=== PATIENT | male | born 1980 | race Two or more races ===

== ENCOUNTER 2017-05-19 20:09 | Inpatient (IN) | payer MEDICAID ==
[~2017-05-19] VITALS: Ht 175.3 cm; Wt 104.3 kg
[2017-05-19 21:38] LABS: Basophils # (auto) 0.1 uL; Basophils % (auto) 0.5 % (0.0-2.0); Eosinophils # (auto) 0.1 uL; Eosinophils % (auto) 0.6 % (0.0-7.0); Hematocrit 51.2 % (41.0-53.0); Hemoglobin 17.1 g/dL (13.5-17.5); Lymphocytes # (auto) 1.9 uL; Lymphocytes % (auto) 9.7 % (10.0-50.0); Mean Corpuscular Hemoglobin 29.8 pg (28.0-32.0); Mean Corpuscular Hgb Conc. 33.5 g/dL (32.0-36.0); Mean Corpuscular Volume 89.1 fL (80.0-100.0); Monocytes # (auto) 0.9 uL; Monocytes % (auto) 4.4 % (0.0-12.0); Neutrophils # (auto) 16.4 uL; Neutrophils % (auto) 84.8 % (37.0-80.0); Platelet Count (auto) 340 10^3/uL (140-450); Red Blood Cells 5.74 10^6/uL (4.5-5.90); Red Cell Distribution Width 13.9 % (11.8-14.3); White Blood Cell 19.4 10^3/uL (4.4-10.8)
[2017-05-19 21:56] LABS: BUN/Creatinine Ratio 19.8; Calcium 9.1 mg/dL (8.5-10.1); Potassium 3.4 mmol/L (3.5-5.1)
[2017-05-19 21:59] LABS: Bilirubin, Total 0.2 mg/dL (0.2-1.0); Total Protein 8.3 g/dL (6.4-8.2)
[2017-05-20] MEDS ORDERED: metroNIDAZOLE 500MG/100ML 100 ML IV ONE (02:30)
[2017-05-20] MEDS ORDERED: SODIUM CHLORIDE 0.9% 1,000 ML IV ONE ×2 (02:30→06:30)
[2017-05-20] MEDS ORDERED: ONDANSETRON HCL 4 MG/2 ML VIAL IV ONE (02:30)
[2017-05-20] MEDS ORDERED: PIPERACILLIN-TAZOB 3.375GM 100 ML IV ONE (02:30)
[2017-05-20] MEDS ORDERED: HYDROmorphone HCL 2 MG/ML VL IV ONE (02:30)
[2017-05-20] MEDS: HYDROmorphone HCL 2 MG/ML VL IV PRN ×4 (08:10→23:32)
[2017-05-20] MEDS: ONDANSETRON HCL 4 MG/2 ML VIAL IV PRN ×2 (08:10→14:44)
[2017-05-20] MEDS: metroNIDAZOLE 500MG/100ML 100 ML IV SCH ×2 (08:10→14:33)
[2017-05-20] MEDS: PIPERACILLIN-TAZOB 3.375GM 100 ML IV SCH ×3 (10:00→22:42)
[2017-05-20 11:00] VITALS: BP 114/97
[2017-05-20 13:23] LABS: Urine Bacteria NONE SEEN /hpf (None Seen); Urine Blood Negative /uL (Negative); Urine Mucus FEW (None Seen); Urine Specific Gravity 1.023 (1.001-1.035); Urine WBC 2 /hpf (0 - 3)
[2017-05-20 17:01] VITALS: BP 124/68
[2017-05-20] MEDS ORDERED: VANCOMYCIN PER PHARMACY 0 MG IV SCH (18:15)
[2017-05-20] MEDS: SODIUM CHLORIDE 0.9% 1,000 ML IV SCH (18:47)
[2017-05-20 20:00] VITALS: BP 124/68
[2017-05-20] MEDS: VANCOMYCIN 1,250 MG in D5W 5% 250 ML IV SCH (20:02)
[2017-05-20 22:00] VITALS: BP 104/61
[2017-05-21] MEDS: PIPERACILLIN-TAZOB 3.375GM 100 ML IV SCH ×4 (04:17→22:18)
[2017-05-21] MEDS: HYDROmorphone HCL 2 MG/ML VL IV PRN ×5 (04:18→23:00)
[2017-05-21] MEDS: SODIUM CHLORIDE 0.9% 1,000 ML IV SCH ×2 (04:18→15:28)
[2017-05-21 05:00] VITALS: BP 118/61
[2017-05-21 06:22] LABS: Basophils # (auto) 0 uL; Basophils % (auto) 0.5 % (0.0-2.0); Eosinophils # (auto) 0.1 uL; Eosinophils % (auto) 1.6 % (0.0-7.0); Hematocrit 40.9 % (41.0-53.0); Hemoglobin 13.9 g/dL (13.5-17.5); Lymphocytes # (auto) 1.1 uL; Lymphocytes % (auto) 14.2 % (10.0-50.0); Mean Corpuscular Hemoglobin 30.6 pg (28.0-32.0); Mean Corpuscular Hgb Conc. 33.9 g/dL (32.0-36.0); Mean Corpuscular Volume 90.2 fL (80.0-100.0); Monocytes # (auto) 0.4 uL; Monocytes % (auto) 5.8 % (0.0-12.0); Neutrophils # (auto) 5.9 uL; Neutrophils % (auto) 77.9 % (37.0-80.0); Platelet Count (auto) 230 10^3/uL (140-450); Red Blood Cells 4.54 10^6/uL (4.5-5.90); White Blood Cell 7.6 10^3/uL (4.4-10.8)
[2017-05-21 06:37] LABS: Albumin 3.2 g/dL (3.4-5.0); BUN/Creatinine Ratio 16.7; Calcium 8.1 mg/dL (8.5-10.1); Potassium 3.4 mmol/L (3.5-5.1)
[2017-05-21 06:40] LABS: Bilirubin, Total 0.9 mg/dL (0.2-1.0); Total Protein 6.9 g/dL (6.4-8.2)
[2017-05-21] MEDS: VANCOMYCIN 1,250 MG in D5W 5% 250 ML IV SCH ×2 (08:27→19:44)
[2017-05-21] MEDS: ONDANSETRON HCL 4 MG/2 ML VIAL IV PRN (08:37)
[2017-05-21 09:00] VITALS: BP 121/60
[2017-05-21 13:00] VITALS: BP 116/61
[2017-05-21 17:00] VITALS: BP 117/70
[2017-05-21 20:00] VITALS: BP 117/70
[2017-05-21 23:22] VITALS: BP 118/71
[2017-05-22] MEDS: SODIUM CHLORIDE 0.9% 1,000 ML IV SCH ×3 (00:21→20:15)
[2017-05-22] MEDS: PIPERACILLIN-TAZOB 3.375GM 100 ML IV SCH ×2 (04:01→10:00)
[2017-05-22] MEDS: HYDROmorphone HCL 2 MG/ML VL IV PRN ×5 (04:01→20:31)
[2017-05-22 05:47] LABS: Basophils # (auto) 0 uL; Basophils % (auto) 0.5 % (0.0-2.0); Eosinophils # (auto) 0.2 uL; Eosinophils % (auto) 2.3 % (0.0-7.0); Hemoglobin 14.5 g/dL (13.5-17.5); Lymphocytes # (auto) 1.2 uL; Mean Corpuscular Hemoglobin 30.5 pg (28.0-32.0); Mean Corpuscular Hgb Conc. 33.8 g/dL (32.0-36.0); Mean Corpuscular Volume 90.3 fL (80.0-100.0); Monocytes # (auto) 0.5 uL; Monocytes % (auto) 5.5 % (0.0-12.0); Neutrophils # (auto) 6.9 uL; Neutrophils % (auto) 77.7 % (37.0-80.0); Nucleated Red Blood Cells % 0.1 %; Platelet Count (auto) 239 10^3/uL (140-450); Red Blood Cells 4.76 10^6/uL (4.5-5.90); Red Cell Distribution Width 13.5 % (11.8-14.3); White Blood Cell 8.8 10^3/uL (4.4-10.8)
[2017-05-22 06:02] VITALS: BP 109/57
[2017-05-22 06:05] LABS: Albumin 3.1 g/dL (3.4-5.0); BUN/Creatinine Ratio 13.9; Calcium 8.1 mg/dL (8.5-10.1); Magnesium 2.3 mg/dL (1.6-2.6); Potassium 3.4 mmol/L (3.5-5.1)
[2017-05-22 06:07] LABS: Bilirubin, Total 0.9 mg/dL (0.2-1.0); Phosphorus 2.9 mg/dL (2.5-4.90); Total Protein 6.9 g/dL (6.4-8.2)
[2017-05-22 08:00] VITALS: BP 119/72
[2017-05-22] MEDS: VANCOMYCIN 1,250 MG in D5W 5% 250 ML IV SCH (08:29)
[2017-05-22 09:00] VITALS: BP 119/72
[2017-05-22 11:21] LABS: INR 1.01 (0.9-1.15); Partial Thromboplastin Time 30.4 sec (22.64-33.71)
[2017-05-22] MEDS ORDERED: POVIDONE IODINE 10 % TOPICAL OINT 30GM TOP ONE (11:38)
[2017-05-22 12:00] VITALS: BP 108/65
[2017-05-22] MEDS ORDERED: fentaNYL CITRATE 100 MCG/2 ML VL ONE ×2 (13:21→14:04)
[2017-05-22] MEDS ORDERED: PHENYLEPHRINE HCL 10 MG/ML VL ONE (13:22)
[2017-05-22] MEDS ORDERED: PROPOFOL 10 MG/ML 20 ML IV ONE (13:22)
[2017-05-22] MEDS ORDERED: METOCLOPRAMIDE HCL 5MG/ml INJ 2ml VIAL ONE (13:22)
[2017-05-22] MEDS ORDERED: ONDANSETRON HCL 4 MG/2 ML VIAL ONE (13:22)
[2017-05-22] MEDS ORDERED: diphenhdrAMINE HCL 50 MG/1 ML VL ONE (13:22)
[2017-05-22] MEDS ORDERED: LIDOCAINE HCL 2 %PF INJ 10ML AMP IJ ONE (13:22)
[2017-05-22] MEDS ORDERED: DEXAMETHASONE SOD PHOS 10MG/1ML VIAL INJ ONE (13:22)
[2017-05-22] MEDS ORDERED: ROCURONIUM 10MG/ML 10ML VIAL IV ONE (13:30)
[2017-05-22] MEDS ORDERED: ceFAZolin 1GM VL ONE (13:45)
[2017-05-22] MEDS ORDERED: KETOROLAC TROMETH 30 MG/ML 1ML VIAL ONE (14:05)
[2017-05-22] MEDS ORDERED: NEOSTIGMINE 1 MG/ML INJ (10mg/10ML VIAL) ONE (14:29)
[2017-05-22] MEDS ORDERED: GLYCOPYRROLATE 0.2 MG/ML 1ML VIAL ONE ×2 (14:29→14:34)
[2017-05-22] MEDS ORDERED: NALOXONE HCL 0.4 MG/ML VIAL IV PRN (15:00)
[2017-05-22] MEDS ORDERED: ONDANSETRON HCL 4 MG/2 ML VIAL IV ONE (15:00)
[2017-05-22] MEDS ORDERED: HYDROmorphone HCL 2 MG/ML VL IV PRN (15:00)
[2017-05-22] MEDS: PIPERACILLIN-TAZOB 3.375GM 50 ML IV SCH ×2 (16:00→22:03)
[2017-05-22 17:00] VITALS: BP 128/73
[2017-05-22] MEDS: HYDROcodone-ACET 5/325MG TAB PO PRN (18:35)
[2017-05-22 21:59] VITALS: BP 111/69
[2017-05-23] MEDS: HYDROmorphone HCL 2 MG/ML VL IV PRN ×6 (00:44→20:46)
[2017-05-23] MEDS: PIPERACILLIN-TAZOB 3.375GM 50 ML IV SCH ×2 (04:07→09:46)
[2017-05-23] MEDS: SODIUM CHLORIDE 0.9% 1,000 ML IV SCH ×2 (04:47→16:15)
[2017-05-23 05:33] VITALS: BP 124/69
[2017-05-23] MEDS: HYDROcodone-ACET 5/325MG TAB PO PRN ×3 (07:18→20:02)
[2017-05-23 07:32] LABS: Basophils # (auto) 0 uL; Basophils % (auto) 0.2 % (0.0-2.0); Eosinophils # (auto) 0 uL; Hematocrit 41.3 % (41.0-53.0); Hemoglobin 13.8 g/dL (13.5-17.5); Lymphocytes # (auto) 1.1 uL; Lymphocytes % (auto) 8.3 % (10.0-50.0); Mean Corpuscular Hemoglobin 30.1 pg (28.0-32.0); Mean Corpuscular Hgb Conc. 33.3 g/dL (32.0-36.0); Mean Corpuscular Volume 90.5 fL (80.0-100.0); Monocytes # (auto) 0.5 uL; Monocytes % (auto) 3.5 % (0.0-12.0); Neutrophils # (auto) 11.9 uL; Nucleated Red Blood Cells % 0.2 %; Platelet Count (auto) 297 10^3/uL (140-450); Red Blood Cells 4.56 10^6/uL (4.5-5.90); Red Cell Distribution Width 13.7 % (11.8-14.3); White Blood Cell 13.5 10^3/uL (4.4-10.8)
[2017-05-23 08:07] LABS: BUN/Creatinine Ratio 14.3; Bilirubin, Total 0.5 mg/dL (0.2-1.0); Calcium 8.4 mg/dL (8.5-10.1); Potassium 3.6 mmol/L (3.5-5.1); Total Protein 6.9 g/dL (6.4-8.2)
[2017-05-23 09:00] VITALS: BP 108/50
[2017-05-23] MEDS: LEVOFLOXACIN 500MG 100 ML IV SCH (11:49)
[2017-05-23 13:00] VITALS: BP 111/61
[2017-05-23] MEDS: metroNIDAZOLE 500MG/100ML 100 ML IV SCH ×2 (14:00→22:06)
[2017-05-23 17:00] VITALS: BP 111/59
[2017-05-23 22:00] VITALS: BP 110/73
[2017-05-24] MEDS: HYDROmorphone HCL 2 MG/ML VL IV PRN ×4 (00:44→13:16)
[2017-05-24] MEDS: SODIUM CHLORIDE 0.9% 1,000 ML IV SCH (02:15)
[2017-05-24 05:00] VITALS: BP 113/68
[2017-05-24] MEDS: metroNIDAZOLE 500MG/100ML 100 ML IV SCH (06:12)
[2017-05-24 06:41] LABS: Basophils # (auto) 0.1 uL; Basophils % (auto) 0.6 % (0.0-2.0); Eosinophils # (auto) 0.2 uL; Eosinophils % (auto) 2.3 % (0.0-7.0); Hematocrit 38.7 % (41.0-53.0); Lymphocytes # (auto) 2.5 uL; Mean Corpuscular Hemoglobin 30.5 pg (28.0-32.0); Mean Corpuscular Hgb Conc. 33.6 g/dL (32.0-36.0); Mean Corpuscular Volume 90.8 fL (80.0-100.0); Monocytes # (auto) 0.5 uL; Monocytes % (auto) 5.3 % (0.0-12.0); Neutrophils # (auto) 6.3 uL; Neutrophils % (auto) 65.8 % (37.0-80.0); Nucleated Red Blood Cells % 0.1 %; Platelet Count (auto) 260 10^3/uL (140-450); Red Blood Cells 4.26 10^6/uL (4.5-5.90); Red Cell Distribution Width 14.1 % (11.8-14.3); White Blood Cell 9.6 10^3/uL (4.4-10.8)
[2017-05-24 06:47] LABS: BUN/Creatinine Ratio 16.2; Bilirubin, Total 0.3 mg/dL (0.2-1.0); Calcium 8.3 mg/dL (8.5-10.1); Potassium 3.5 mmol/L (3.5-5.1); Total Protein 6.5 g/dL (6.4-8.2)
[2017-05-24] MEDS: HYDROcodone-ACET 5/325MG TAB PO PRN ×2 (07:46→14:10)
[2017-05-24 08:00] VITALS: BP 107/63
[2017-05-24] MEDS ORDERED: POTASSIUM CHL 10% (20 MEQ/15ML) 15ml ORAL SOLN GT ONE (08:15)
[2017-05-24 08:35] VITALS: BP 107/63
[2017-05-24] MEDS: LEVOFLOXACIN 500MG 100 ML IV SCH (09:26)
[2017-05-24 12:26] VITALS: BP 123/61
== END 2017-05-24 14:00 | disposition home or self-care (01) | DRG 710 ==
LOC: ER 20:09 → OVERFLOW 20:10 → EAST 05-20 11:09
PROVIDERS: ADMIT Family Medicine; ATTEND Internal Medicine
PROC: 0FT44ZZ Resection of Gallbladder, Percutaneous Endoscopic Approach (ICD-10-PCS; principal; 2017-05-22 13:28)
DX: A41.9 Sepsis, unspecified organism (principal); J18.8 Other pneumonia, unspecified organism; D68.59 Other primary thrombophilia; R53.2 Functional quadriplegia; K80.12 Calculus of gallbladder with acute and chronic cholecystitis without obstruction; E66.01 Morbid (severe) obesity due to excess calories; R16.2 Hepatomegaly with splenomegaly, not elsewhere classified; K76.0 Fatty (change of) liver, not elsewhere classified; R74.0 Nonspecific elevation of levels of transaminase and lactic acid dehydrogenase [LDH]; Z68.34 Body mass index [BMI] 34.0-34.9, adult; Z71.3 Dietary counseling and surveillance
CPT/HCPCS: 36415; 71020; 74176; 76705; 78226; 80053; 80202; 81001; 82247; 83690; 83735; 84100; 85025; 85610; 85730; 86850; 86900; 86901; 87040; 93005; 96365; 96366; 96367; 96375; J0690; J1100; J1885; J1956; J2405; J2543; J2704; J3490; J7060

== ENCOUNTER 2017-05-27 11:04 | Emergency (ER) | payer MEDICAID ==
[~2017-05-27] VITALS: Ht 175.3 cm; Wt 99.1 kg
[2017-05-27 13:32] VITALS: BP 134/83
== END 2017-05-27 14:07 | disposition home or self-care (01) ==
LOC: ER 11:04
DX: Z76.1 Encounter for health supervision and care of foundling (principal); Z48.01 Encounter for change or removal of surgical wound dressing; Z90.49 Acquired absence of other specified parts of digestive tract

== ENCOUNTER → 2017-08-10 | Outpatient (CLI) | payer MEDICAID | END | disposition home or self-care (01) | LOC: LAB 10:49 | PROVIDERS: ATTEND Family Medicine | DX: L91.8 Other hypertrophic disorders of the skin (principal) ==